=== PATIENT | female | born 1935 | race Caucasian/White ===

== ENCOUNTER 2017-09-04 18:14 | Emergency (ER) | payer MEDICARE, OTHER ==
--- NOTE | 2017-09-04 19:32 | EDM.PDOC ---
ED HPI GENERAL MEDICAL PROBLEM - General Chief Complaint: General Stated Complaint: CONFUSED [id number] Time Seen by Provider: 09/04/17 19:00 Source of Information: Reports: Patient, Family History Limitations: Reports: No Limitations - History of Present Illness INITIAL COMMENTS - FREE TEXT/NARRATIVE: ED with Granddaughter. Patient reports that she was "mixed up today". Family note increasing confusion over past year since dx of CLL. Is currently on no treatment. Family report increasing forgetfulness and periods of confusion over past year. Patient had been moved from [facility] to [facility], Currently living in independent setting with family assisting with dropping off meals. Note weight loss . Patient admits not eating as well. Patient admits to being mixed up today but able to remember that she was looking for her car. Family report the she was moving belongings into hallway and that whe had thought she had just come home from work. Onset: Gradual - Related Data Allergies Allergy/AdvReac Type Severity Reaction Status Date / Time tramadol Allergy Vomiting Verified 09/04/17 19:06 Home Meds: Home Meds Ascorbic Acid [Vitamin C] 1,000 mg PO DAILY 09/04/17 [History] Calcium Carbonate/Vitamin D3 [Os-Rikki 500+D] 2 tab PO DAILY 09/04/17 [History] Cholecalciferol (Vitamin D3) [Vitamin D3] 2,000 unit PO DAILY 09/04/17 [History] Hydrochlorothiazide 25 mg PO DAILY 09/04/17 [History] Lisinopril 20 mg PO DAILY 09/04/17 [History] Metoprolol Succinate 25 mg PO DAILY 09/04/17 [History] Simvastatin [Zocor] 20 mg PO BEDTIME 09/04/17 [History] Zolpidem [Ambien] 5 mg PO BEDTIME 09/04/17 [History] Past Medical History Cardiovascular History: Reports: High Cholesterol, Hypertension Oncologic (Cancer) History: Reports: Non-Hodgkin's Lymphoma - Infectious Disease History Infectious Disease History: Reports: Chicken Pox, Measles, Shingles - Past Surgical History Musculoskeletal Surgical History: Reports: Other (See Below) Other Musculoskeletal Surgeries/Procedures:: surgery to right heel Social & Family History - Family History Family Medical History: Noncontributory - Tobacco Use Smoking Status *Q: Never Smoker - Caffeine Use Caffeine Use: Reports: Coffee - Recreational Drug Use Recreational Drug Use: No ED ROS GENERAL - Review of Systems Review Of Systems: See Below Constitutional: Reports: Decreased Appetite HEENT: Reports: No Symptoms Respiratory: Reports: No Symptoms Cardiovascular: Reports: No Symptoms GI/Abdominal: Reports: Decreased Appetite : Reports: No Symptoms Musculoskeletal: Reports: No Symptoms Skin: Reports: No Symptoms Neurological: Reports: Confusion. Denies: Headache, Trouble Speaking, Weakness Psychiatric: Reports: Confusion Hematologic/Lymphatic: Reports: Other (CLL) ED EXAM, GENERAL - Physical Exam Exam: See Below Exam Limited By: No Limitations General Appearance: Alert, No Apparent Distress, Thin, Other (Clean, dressed appropriately ) Eye Exam: Bilateral Eye: EOMI Ears: Normal External Exam, Normal TMs Nose: Normal Inspection, Normal Mucosa Throat/Mouth: Normal Inspection Head: Atraumatic, Normocephalic Neck: Normal Inspection, Full Range of Motion Respiratory/Chest: No Respiratory Distress, Lungs Clear, Normal Breath Sounds Cardiovascular: Normal Peripheral Pulses, Regular Rate, Rhythm GI/Abdominal: Normal Bowel Sounds, Soft, Non-Tender Back Exam: Normal Inspection, Full Range of Motion Extremities: Normal Inspection Neurological: Alert, Oriented (person palce, reports it is thursday or thursday ( day being Thursday) correct on month. Unsure of age, notes [age] as 80 0r 81.), No Motor/Sensory Deficits, Memory Loss Recent Events Psychiatric: Normal Affect, Normal Mood Skin Exam: Warm, Dry, Intact, Normal Color EKG INTERPRETATION Rhythm: NSR Course - Vital Signs Last Recorded V/S: Last Vital Signs Temp 98.7 F 09/04/17 18:40 Pulse 91 09/04/17 18:40 Resp 16 09/04/17 18:40 BP 161/80 H 09/04/17 18:40 Pulse Ox 97 09/04/17 18:40 - Orders/Labs/Meds Orders: Active Orders 24 hr Category Date Time Status EKG Documentation Completion [RC] URGENT Care 09/04/17 19:07 Active Labs: Laboratory Tests 09/04/17 09/04/17 09/04/17 Range/Units 19:15 19:15 19:15 WBC 29.5 H* (5.0-10.0) 10^3/uL RBC 3.07 L (4.2-5.4) 10^6/uL Hgb 9.8 L (12.0-16.0) g/dL Hct 30.1 L (37.0-47.0) % MCV 98.0 (80-100) fL MCH 31.9 (27.0-34.0) pg MCHC 32.6 L (33.0-35.0) g/dL Plt Count 180 (150-450) 10^3/uL Neut % (Auto) 19.1 L (42.2-75.2) % Lymph % (Auto) 76.0 H (20.5-50.1) % Morehouse % (Auto) 4.3 (2-8) % Eos % (Auto) 0.4 L (1.0-3.0) % Baso % (Auto) 0.2 (0.0-1.0) % Add Manual Diff Yes Neutrophils % (Manual) 19 L (42-75) % Lymphocytes % (Manual) 77 H (20-50) % Monocytes % (Manual) 4 (2-8) % Sodium 140 (135-145) mmol/L Potassium 3.4 L (3.6-5.0) mmol/L Chloride 103 (101-111) mmol/L Carbon Dioxide 25.0 (21.0-31.0) mmol/L Anion Gap 15.4 BUN 50 H (7-18) mg/dL Creatinine 1.3 (0.6-1.3) mg/dL Est Cr Clr Drug Dosing 26.53 mL/min Estimated GFR (MDRD) 39 BUN/Creatinine Ratio 38.46 Glucose 90 (74-105) mg/dL Calcium 9.3 (8.4-10.2) mg/dl Magnesium 1.4 L (1.8-2.5) mg/dL Total Bilirubin 0.8 (0.2-1.0) mg/dL AST 28 (10-42) IU/L ALT 19 (10-60) IU/L Alkaline Phosphatase 49 (42-121) IU/L Troponin I < 0.02 (0.00-0.02) ng/ml C-Reactive Protein < 0.5 (0.0-1.3) mg/dL Total Protein 6.3 L (6.7-8.2) g/dl Albumin 3.9 (3.2-5.5) g/dl Globulin 2.4 Albumin/Globulin Ratio 1.63 Amylase 139 H (28-100) U/L Lipase 27 (22-51) U/L Urine Color (YELLOW) Urine Appearance (CLEAR) Urine pH (5.0-9.0) Ur Specific Gravel Switch (1.005-1.030) Urine Protein (NEGATIVE) Urine Glucose (UA) (NEGATIVE) Urine Ketones (NEGATIVE) Urine Occult Blood (NEGATIVE) Urine Nitrite (NEGATIVE) Urine Bilirubin (NEGATIVE) Urine Urobilinogen (0.2-1.0) mg/dL Ur Leukocyte Esterase (NEGATIVE) Urine RBC /HPF Urine WBC (0-5/HPF) /HPF Ur Epithelial Cells /HPF Urine Bacteria (0-FEW/HPF) /HPF 09/04/17 Range/Units 20:05 WBC (5.0-10.0) 10^3/uL RBC (4.2-5.4) 10^6/uL Hgb (12.0-16.0) g/dL Hct (37.0-47.0) % MCV (80-100) fL MCH (27.0-34.0) pg MCHC (33.0-35.0) g/dL Plt Count (150-450) 10^3/uL Neut % (Auto) (42.2-75.2) % Lymph % (Auto) (20.5-50.1) % Morehouse % (Auto) (2-8) % Eos % (Auto) (1.0-3.0) % Baso % (Auto) (0.0-1.0) % Add Manual Diff Neutrophils % (Manual) (42-75) % Lymphocytes % (Manual) (20-50) % Monocytes % (Manual) (2-8) % Sodium (135-145) mmol/L Potassium (3.6-5.0) mmol/L Chloride (101-111) mmol/L Carbon Dioxide (21.0-31.0) mmol/L Anion Gap BUN (7-18) mg/dL Creatinine (0.6-1.3) mg/dL Est Cr Clr Drug Dosing mL/min Estimated GFR (MDRD) BUN/Creatinine Ratio Glucose (74-105) mg/dL Calcium (8.4-10.2) mg/dl Magnesium (1.8-2.5) mg/dL Total Bilirubin (0.2-1.0) mg/dL AST (10-42) IU/L ALT (10-60) IU/L Alkaline Phosphatase (42-121) IU/L Troponin I (0.00-0.02) ng/ml C-Reactive Protein (0.0-1.3) mg/dL Total Protein (6.7-8.2) g/dl Albumin (3.2-5.5) g/dl Globulin Albumin/Globulin Ratio Amylase (28-100) U/L Lipase (22-51) U/L Urine Color Yellow (YELLOW) Urine Appearance Clear (CLEAR) Urine pH 5.5 (5.0-9.0) Ur Specific Gravel Switch 1.015 (1.005-1.030) Urine Protein Negative (NEGATIVE) Urine Glucose (UA) Negative (NEGATIVE) Urine Ketones Negative (NEGATIVE) Urine Occult Blood Small H (NEGATIVE) Urine Nitrite Negative (NEGATIVE) Urine Bilirubin Negative (NEGATIVE) Urine Urobilinogen 0.2 (0.2-1.0) mg/dL Ur Leukocyte Esterase Trace H (NEGATIVE) Urine RBC 0-5 /HPF Urine WBC 0-5 (0-5/HPF) /HPF Ur Epithelial Cells Few /HPF Urine Bacteria Few (0-FEW/HPF) /HPF - Radiology Interpretation Free Text/Narrative:: Head CT- no acute intracranial process. - Re-Assessments/Exams Free Text/Narrative Re-Assessment/Exam: 09/04/17 20:36 Patient quiet, communicates appropriately with family. Granddaughter notes family will be staying with patient through weekend and are aware of need for higher level of care. Departure - Departure Time of Disposition: 20:37 Disposition: Home, Self-Care 01 Condition: Fair Clinical Impression: Confusion, CLL (chronic lymphocytic leukemia) - Discharge Information Instructions: Confusion Forms: ED Department Discharge Additional Instructions: increase fluids and nutritional state protein supplements follow up with primary care provider early next week family to stay with patient until alternative care determined - My Orders Last 24 Hours: My Active Orders 09/04/17 19:07 EKG Documentation Completion [RC] URGENT - Assessment/Plan Last 24 Hours: My Active Orders 09/04/17 19:07 EKG Documentation Completion [RC] URGENT
[2017-09-04 19:42] LABS: CHLORIDE,CL 103 mmol/L (101-111); SODIUM,NA 140 mmol/L (135-145)
--- NOTE | 2017-09-07 14:31 | EKG ---
09/04/2017 - CHIOMA HERNANDEZ - FINDINGS: This 12-lead EKG shows a normal sinus rhythm with a ventricular rate of 79. First-degree AV block and a right bundle-branch block. No other comments are made. [facility] /[id number]
== END 2017-09-04 20:43 | disposition home or self-care (01) ==
LOC: DL.ED 18:14
DX: R41.0 Disorientation, unspecified (principal); C91.10 Chronic lymphocytic leukemia of B-cell type not having achieved remission; I10 Essential (primary) hypertension; Z79.899 Other long term (current) drug therapy; E78.00 Pure hypercholesterolemia, unspecified
CPT/HCPCS: 36415; 70450; 80053; 81001; 82150; 83690; 83735; 84484; 85025; 86140; 93005; 93010; 99284; 99285

== ENCOUNTER 2017-09-19 11:23 | Emergency (ER) | payer MEDICARE, OTHER ==
[2017-09-19] MEDS ORDERED: Fluorescein 1 MG Ophth Strip EYELF ONE (13:27)
[2017-09-19] MEDS ORDERED: Tetracaine HCl/PF 0.5% 4 ML Bottle EYELF ONE (13:28)
[2017-09-19] MEDS ORDERED: Fluorescein 1 MG Ophth Strip EYERT ONE (13:49)
--- NOTE | 2017-09-19 19:32 | EDM.PDOC ---
Scribed by Maria Luz Irvin 09/19/17 [id number] for Greer Villatoro NP ED HPI GENERAL MEDICAL PROBLEM - General Chief Complaint: Eye Problems Stated Complaint: EYES HURTING [id number] Time Seen by Provider: 09/19/17 13:20 Source of Information: Reports: Patient, RN, RN Notes Reviewed History Limitations: Reports: No Limitations - History of Present Illness INITIAL COMMENTS - FREE TEXT/NARRATIVE: Patient states she was out shoveling yesterday. Her right eye began hurting last night. Today (this am) left eye feels like something in it. Pain is 10/10. No other complaints. Onset Date: 09/18/17 Duration: Getting Worse Location: Reports: Other (left eye) Quality: Reports: Ache Severity: Severe Improves with: Reports: None Worsens with: Reports: None Associated Symptoms: Reports: No Other Symptoms Left Eye Pain Score (Numeric/FACES): 10 - Related Data Allergies Allergy/AdvReac Type Severity Reaction Status Date / Time tramadol Allergy Vomiting Verified 09/19/17 11:47 Home Meds: Home Meds Ascorbic Acid [Vitamin C] 1,000 mg PO DAILY 09/04/17 [History] Calcium Carbonate/Vitamin D3 [Os-Rikki 500+D] 2 tab PO DAILY 09/04/17 [History] Cholecalciferol (Vitamin D3) [Vitamin D3] 2,000 unit PO DAILY 09/04/17 [History] Hydrochlorothiazide 25 mg PO DAILY 09/04/17 [History] Lisinopril 20 mg PO DAILY 09/04/17 [History] Metoprolol Succinate 25 mg PO DAILY 09/04/17 [History] Simvastatin [Zocor] 20 mg PO BEDTIME 09/04/17 [History] Zolpidem [Ambien] 5 mg PO BEDTIME 09/04/17 [History] Past Medical History Cardiovascular History: Reports: High Cholesterol, Hypertension Oncologic (Cancer) History: Reports: Non-Hodgkin's Lymphoma - Infectious Disease History Infectious Disease History: Reports: Chicken Pox, Measles, Shingles - Past Surgical History Musculoskeletal Surgical History: Reports: Other (See Below) Other Musculoskeletal Surgeries/Procedures:: surgery to right heel Social & Family History - Family History Family Medical History: Noncontributory - Tobacco Use Smoking Status *Q: Never Smoker - Caffeine Use Caffeine Use: Reports: Coffee - Recreational Drug Use Recreational Drug Use: No ED ROS GENERAL - Review of Systems Review Of Systems: ROS reveals no pertinent complaints other than HPI. ED EXAM GENERAL W FULL EYE - Physical Exam Exam: See Below Exam Limited By: No Limitations General Appearance: Other (moderate to severe distress) Ears: Normal External Exam, Normal Canal, Hearing Grossly Normal, Normal TMs Nose: Normal Inspection, Normal Mucosa, No Blood Throat/Mouth: Normal Inspection, Normal Lips, Normal Teeth, Normal Gums, Normal Oropharynx, Normal Voice, No Airway Compromise Head: Atraumatic, Normocephalic Neck: Normal Inspection, Supple, Non-Tender, Full Range of Motion Respiratory/Chest: Other (decreased lung sounds) GI/Abdominal: Normal Bowel Sounds, Soft, Non-Tender, No Organomegaly, No Distention, No Abnormal Bruit, No Mass (Female) Exam: Deferred Back Exam: Normal Inspection, Full Range of Motion, NT Extremities: Normal Inspection, Normal Range of Motion, Non-Tender, Normal Capillary Refill, No Pedal Edema Neurological: Alert, Oriented, CN II-XII Intact, Normal Cognition, Normal Gait, Normal Reflexes, No Motor/Sensory Deficits Psychiatric: Anxious Skin Exam: Warm, Dry, Intact, Normal Color, No Rash Lymphatic: No Adenopathy ED EYE w/ Add Procedure - Eye Procedure Alcaine Drops Administered: Yes - Additional/Other Procedure(s) Other (Free Text) Procedure(s) [Text1]: Tetracaine drops applied to the eyes bilaterally as well as fluorisciene to illuminate. Corneal abrasion noted to the left eye, right eye does not show an abrasion. No foreign bodies noted in either of the eyes. Eyes were flushed bilaterally with normal saline. Course - Vital Signs Last Recorded V/S: Last Vital Signs Temp 98.9 F 09/19/17 13:19 Pulse 80 09/19/17 13:19 Resp 22 H 09/19/17 13:19 BP 162/71 H 09/19/17 13:19 Pulse Ox 100 09/19/17 13:19 - Orders/Labs/Meds Meds: Medications Discontinued Medications Generic Name Dose Route Start Last Admin Trade Name Freq PRN Reason Stop Dose Admin Fluorescein Sodium 1 mg 09/19/17 13:27 09/19/17 13:32 Ful-Gissel EYELF 09/19/17 13:28 1 mg ONETIME ONE Administration Fluorescein Sodium 1 mg 09/19/17 13:49 09/19/17 13:52 Ful-Gissel EYERT 09/19/17 13:50 1 mg ONETIME ONE Administration Tetracaine HCl 1 ml 09/19/17 13:28 09/19/17 13:32 Tetracaine 0.5% Steri-Unit Pricilla EYELF 09/19/17 13:29 1 ml ASDIRECTED ONE Administration Departure - Departure Time of Disposition: 14:10 Disposition: Home, Self-Care 01 Condition: Fair Clinical Impression: Corneal abrasion - Discharge Information Instructions: Corneal Abrasion, [id number] Forms: ED Department Discharge Additional Instructions: May use tylenol or ibuprofen as directed for pain RX: Cyclopentolate, Erythromycin ophthalmic Follo up with the eye doctor next week. I have read and agree with the documentation that has been completed regarding this visit. By signing this record, I attest that the documentation was completed in my physical presence and is an accurate record of the encounter.
== END 2017-09-19 14:20 | disposition home or self-care (01) ==
LOC: DL.ED 11:23
DX: S05.02XA Injury of conjunctiva and corneal abrasion without foreign body, left eye, initial encounter (principal); E78.00 Pure hypercholesterolemia, unspecified; I10 Essential (primary) hypertension; Z88.5 Allergy status to narcotic agent; Z79.899 Other long term (current) drug therapy
CPT/HCPCS: 99283; A9270